=== PATIENT | female | born 1995 | race African-American/Black ===

== ENCOUNTER 2018-02-13 13:04 | Day surgery (SDC) | payer OTHER ==
[~2018-02-13] VITALS: Ht 165.1 cm; Wt 54.5 kg
[2018-02-13] MEDS ORDERED: ZYRTEC 10MG10 MG PO (13:23)
[2018-02-13] MEDS ORDERED: MELAT3MGTAB PO (13:24)
[2018-02-13] MEDS ORDERED: BENADRYL25 M2 PO (13:24)
[2018-02-13 13:25] VITALS: BP 131/102; PULSE 100; TEMP 98.5
[2018-02-13] MEDS ORDERED: DAYQUIL PO (13:25)
[2018-02-13 15:15] VITALS: BP 117/80; PULSE 97
[2018-02-13 15:30] VITALS: BP 122/81; PULSE 88
[2018-02-13 15:45] VITALS: BP 122/77; PULSE 77
== END 2018-02-13 16:15 | disposition home or self-care (01) ==
LOC: SDCO 13:04
DX: K52.89 Other specified noninfective gastroenteritis and colitis (principal); K62.5 Hemorrhage of anus and rectum; Z83.71 Family history of colonic polyps; Z83.79 Family history of other diseases of the digestive system
CPT/HCPCS: J2250; J3010; J7030

== ENCOUNTER → 2018-03-01 | Outpatient (CLI) | payer OTHER ==
[~2018-03-01] MED LIST: BENADRYL25 M2 PO; DAYQUIL PO; MELAT3MGTAB PO; ZYRTEC 10MG10 MG PO
== END ==
LOC: COL.RAD 09:59
DX: K52.3 Indeterminate colitis (principal)
CPT/HCPCS: Q9967